=== PATIENT | male | born 1945 | race Two or more races ===

== ENCOUNTER 2025-06-27 07:00 | Day surgery (SDC) | payer OTHER ==
[2025-06-21 14:01] VITALS: BP 123/73
[~2025-06-27] VITALS: Ht 172.7 cm; Wt 74.4 kg
[~2025-06-27 07:00] MED LIST: LOSARTAN-HCTZ1 EACH; NEUROTIN; PROTONIX40 MG; ROSUVASTATIN CA10 MG; TOPROL XL25 M1; WARFARIN SODIUM5 MG; [UNRECOGNIZED DRUG - OTHER]
[2025-06-27] MEDS ORDERED: CEFTRIAXONE SODIUM 2,000 MG VIAL ONE (08:32)
[2025-06-27] MEDS ORDERED: METRONIDAZOLE/SODIUM CHLORIDE 500 MG/100 ML PIGGYBACK IV ONE (08:32)
[2025-06-27] MEDS ORDERED: DIBUCAINE 30 GM TUBE ONE (09:51)
[2025-06-27] MEDS ORDERED: BUPIVACAINE HCL/MPF 0.5% 30ML VIAL ONE (09:51)
[2025-06-27] MEDS ORDERED: LIDOCAINE HCL 1%/EPINEPHRINE 20ML VIAL IJ ONE (09:52)
[2025-06-27] MEDS ORDERED: HEMOSTATIC MATRIX 1 KIT KIT TOP ONE ×2 (09:52→11:06)
[2025-06-27] MEDS ORDERED: POVIDONE-IODINE 118 ML BOTT TOP ONE (09:52)
== END 2025-06-27 13:15 | disposition home or self-care (01) ==
LOC: CIR.AMB 07:00
PROVIDERS: ATTEND Colon & Rectal Surgery
DX: K64.2 Third degree hemorrhoids (principal); K64.4 Residual hemorrhoidal skin tags